=== PATIENT | female | born 1995 | race Caucasian/White ===

== ENCOUNTER → 2017-10-03 | Outpatient (CLI) | payer BC | END | disposition home or self-care (01) | LOC: LAB.O 16:06 | PROVIDERS: ATTEND Nurse Practitioner Family | DX: R10.84 Generalized abdominal pain (principal) ==

== ENCOUNTER → 2017-10-04 | Outpatient (CLI) | payer BC ==
--- NOTE | 2017-10-04 16:23 | CT ---
EXAM DESCRIPTION: Abdomen/Pelvis w/Contrast: CT. CLINICAL HISTORY: GEN ABD PAIN COMPARISON: None. TECHNIQUE: Spiral-axial scans at 5.0 mm intervals through the abdomen and pelvis, after nonionic IV contrast. No oral contrast. Coronal and sagittal 2.0 mm reconstructions. Delayed scans, liver through the pelvis. Axial-spiral 5mm. No adverse reactions. Total Exam DLP: 888.65d mGy-cm. This exam was performed according to our departmental dose-optimization program which includes automated exposure control, adjustment of the mA and/or kV according to patient size and/or use of iterative reconstruction technique; to reduce radiation dose to as low as reasonably achievable (ALARA). FINDINGS: Lung bases and pleura: Negative. Liver, Stomach, Spleen, Adrenal Glands: Unremarkable. Pancreas, Gallbladder, Ducts: Gallbladder is slightly dilated. Pancreas and ducts are negative. Kidneys and Ureters: Unremarkable. Mesentery: No free air or fluid. No stranding or fascial thickening. Aorta: Negative. Small Bowel: Normal caliber with no significant air-fluid levels. Terminal Ileum/Cecum: Slightly distended by fecal material with normal caliber of the TI. Appendix is not seen. Possible surgical sutures on the inferior cecum. Normal density of the surrounding fat. Colon: Fecal material throughout the colon. Minimal redundancy of the sigmoid colon. Pelvic Organs: Moderate amount of fluid in the cul-de-sac. Uterus is retroflexed and deviated to the left of midline. Ovary measures 2.5 x 2.4 cm with possible central collapsing or ruptured cyst which is enhancing. (Series 2, image [id number].) Multiple follicles noted in the left ovary and the adnexa. Spine and Bony Pelvis: Lumbar levoscoliosis. Disc spaces are unremarkable. Abdominal Wall/Back Soft Tissues: Unremarkable. IMPRESSION: 1. Mild to moderate fluid in the cul-de-sac. Possible involuting or ruptured right ovarian follicle. Small follicles in the left ovary. Uterus retroflexed and deviated to the left of midline. Consider pelvic ultrasound correlation. 2. Fecal constipation involving most of the colon. No peritoneal or retroperitoneal mass. Other abdominal pelvic organs are unremarkable except for slight dilation of the gallbladder. Electronically signed by: Stewart Miller MD 10/04/2017 4:22 PM SOFTWARE RELEASE MANAGER
== END | disposition home or self-care (01) ==
LOC: CT 09:19
PROVIDERS: ATTEND Nurse Practitioner Family
DX: R10.84 Generalized abdominal pain (principal)

== ENCOUNTER 2017-11-05 13:48 | Emergency (ER) | payer BC ==
[2017-11-05 14:26] VITALS: TEMP 98.4
[2017-11-05] MEDS ORDERED: AZITHROMYCIN 250 MG TAB PO ONE (15:35)
[2017-11-05] MEDS ORDERED: predniSONE 20 MG TAB PO ONE (15:38)
--- NOTE | 2017-11-05 15:38 | ED.PDOC ---
History of Present Illness - General Chief Complaint: Fever Stated Complaint: BODY ACHES, COUGH, AND CHILLS Time Seen by Provider: 11/05/17 14:16 Source: patient Exam Limitations: no limitations - History of Present Illness Initial Comments: the patient presents after 4 days of symptoms of some cough, congestion, sore throat leading to more of a deeper cough over the last couple of days. No real shortness of breath. No real chest pain. She has had some mild body aches. Flu is prevalent in the community. She does have a history of asthma but does not have an inhaler. Timing/Duration: 24 hours Severity: mild Improving Factors: nothing Worsening Factors: nothing Associated Symptoms: denies symptoms Allergies/Adverse Reactions: Allergies Azithromycin Allergy (Verified 11/05/17 14:22) Fluoxetine [From Prozac] Allergy (Verified 11/05/17 14:22) Metoclopramide [From Reglan] Allergy (Verified 11/05/17 14:22) Home Medications: Ambulatory Orders Albuterol Sulfate [Proair Hfa] 2 puff INH Q6H PRN #1 inhaler 11/05/17 Amoxicillin & Pot Clavulanate [Augmentin Tab] 875 mg PO BID #10 tab 11/05/17 Review of Systems - Review of Systems Constitutional: States: fever, malaise EENTM: States: nose congestion, throat pain Respiratory: States: cough Cardiology: States: no symptoms reported Gastrointestinal/Abdominal: States: no symptoms reported Genitourinary: States: no symptoms reported Musculoskeletal: States: other - generalized myalgias Skin: States: no symptoms reported Neurological: States: no symptoms reported Endocrine: States: no symptoms reported All other Systems: No Change from Baseline Past Medical History (General) - Patient Medical History Hx Asthma: Yes Hx Diabetes: No Surgical History: appendectomy, other - Vaccination History Hx Tetanus, Diphtheria Vaccination: Yes Hx Influenza Vaccination: Yes - Social History Hx Tobacco Use: No Feels Threatened In Home Enviroment: No Feels Threatened In a Relationship: No - Female History Patient is a Female of Child Bearing Age (10 -59 yrs old): Yes Physical Exam - Physical Exam General Appearance: Alert, Comfortable, No apparent distress Eye Exam: bilateral normal Ears, Nose, Throat: hearing grossly normal, nasal congestion, pharyngeal erythema Neck: full range of motion, supple Respiratory: no respiratory distress, no accessory muscle use, other - good air movement and no respiratory distress. She does have occasional mild rhonchi bilaterally. No real wheezing. Cardiovascular/Chest: normal peripheral pulses, regular rate, rhythm, no edema Peripheral Pulses: radial,right: 2+, radial,left: 2+ Gastrointestinal/Abdominal: non tender, soft Rectal Exam: deferred Back Exam: normal inspection, no CVA tenderness Extremity: normal range of motion, non-tender, normal inspection, no pedal edema , normal capillary refill Neurologic: [employer] II-XII nml as tested, alert, normal mood/affect, oriented x 3 Skin Exam: normal color Comments: Vital Signs - 8 hr 11/05/17 14:11 Temperature 98.4 F Pulse Rate [ 112 H Left Brachial] Respiratory 16 Rate Blood Pressure 116/77 [Left Arm] O2 Sat by Pulse 94 L Oximetry Progress - Progress Progress: 11/05/17 15:38 the patient's a 22-year-old female presenting to the emergency room secondary to symptoms of a URI that is likely progressed more to a bronchitis type picture. The patient is going to be covered for atypical bacterial pathogens with Augmentin for 5 days. Additionally given her asthma history she is going to receive 1 dose of prednisone here and will be written for an albuterol inhaler. ER warnings were given for any worsening. She should follow up with her primary care doctor towards the end of the week. 11/05/17 15:40 Departure - Departure Clinical Impression: Upper respiratory infection Qualifiers: URI type: unspecified URI Qualified Code(s): J06.9 - Acute upper respiratory infection, unspecified Asthma Qualifiers: Asthma severity: unspecified severity Asthma complication type: with acute exacerbation Qualified Code(s): J45.901 - Unspecified asthma with (acute) exacerbation Disposition: Discharge to Home or Self Care Condition: Good Departure Forms: ED Discharge - Pt. Copy, Patient Portal Self Enrollment Instructions: Acute Bronchitis Diet: regular diet Activity: increase activity as tolerated Referrals: YOVANY WATTS IV, NP [Primary Care Provider] - 1-5 Days Prescriptions: Albuterol Sulfate [Proair Hfa] 2 puff INH Q6H PRN #1 inhaler PRN Reason: Shortness Of Breath Amoxicillin & Pot Clavulanate [Augmentin Tab] 875 mg PO BID #10 tab Home Medications: Ambulatory Orders Albuterol Sulfate [Proair Hfa] 2 puff INH Q6H PRN #1 inhaler 11/05/17 Amoxicillin & Pot Clavulanate [Augmentin Tab] 875 mg PO BID #10 tab 11/05/17 Additional Instructions: the patient's a 22-year-old female presenting to the emergency room secondary to symptoms of a URI that is likely progressed more to a bronchitis type picture. The patient is going to be covered for atypical bacterial pathogens with Augmentin for 5 days. Additionally given her asthma history she is going to receive 1 dose of prednisone here and will be written for an albuterol inhaler. ER warnings were given for any worsening. She should follow up with her primary care doctor towards the end of the week.
[2017-11-05] MEDS ORDERED: AMOXICILLIN & POT CLAVULANATE 875 MG TAB PO ONE (15:42)
[2017-11-05 15:49] VITALS: BP 126/95; O2SAT 99
== END 2017-11-05 15:54 | disposition home or self-care (01) ==
LOC: ER 13:48
DX: J45.901 Unspecified asthma with (acute) exacerbation (principal); J06.9 Acute upper respiratory infection, unspecified
CPT/HCPCS: 87804; J7512

== ENCOUNTER → 2017-11-05 | Outpatient (CLI) | payer BC | END | disposition home or self-care (01) | LOC: LAB.O 17:27 | PROVIDERS: ATTEND Nurse Practitioner Family | DX: R50.9 Fever, unspecified (principal) ==